=== PATIENT | female | born 1990 | race Caucasian/White ===

== ENCOUNTER 2018-06-25 15:35 | Emergency (ER) | payer BC ==
[2018-06-25] MEDS: Cephalexin 500 MG Cap ONE (16:03)
[2018-06-25] MEDS: Take Home: Cephalexin 500 MG Cap, 4 Cap Pack PO ONE (16:03)
--- NOTE | 2018-06-25 22:17 | EDM.PDOC ---
ED HPI GENERAL MEDICAL PROBLEM - General Chief Complaint: Skin Complaint Time Seen by Provider: 06/25/18 15:35 Source of Information: Reports: Patient History Limitations: Reports: No Limitations - History of Present Illness INITIAL COMMENTS - FREE TEXT/NARRATIVE: PtKrishna presents to ER with complaints to upper torso and extremities. She states that she noticed it after lying in her father's bed. No fever or chills. No weakness. No new medications. No nausea, vomiting, or diarrhea. She denies any other symptoms. Location: Reports: Chest, Back, Upper Extremity, Left, Upper Extremity, Right Associated Symptoms: Reports: Rash. Denies: Confusion, Chest Pain, Diaphoresis , Fever/Chills, Headaches, Loss of Appetite, Malaise, Shortness of Breath, Syncope Headache Pain Score (Numeric/FACES): 5 - Related Data Allergies Allergy/AdvReac Type Severity Reaction Status Date / Time No Known Allergies Allergy Verified 06/25/18 15:56 ED ROS GENERAL - Review of Systems Review Of Systems: See Below Constitutional: Reports: No Symptoms HEENT: Reports: No Symptoms Respiratory: Reports: No Symptoms Cardiovascular: Reports: No Symptoms Endocrine: Reports: No Symptoms GI/Abdominal: Reports: No Symptoms : Reports: No Symptoms Musculoskeletal: Reports: No Symptoms Skin: Reports: Pruritis, Rash Neurological: Reports: No Symptoms Psychiatric: Reports: No Symptoms Hematologic/Lymphatic: Reports: No Symptoms Immunologic: Reports: No Symptoms ED EXAM, SKIN/RASH Exam: See Below Exam Limited By: No Limitations Eye Exam: Bilateral Eye: EOMI, Normal Fundi, Normal Inspection, PERRL Ears: Normal External Exam, Normal Canal, Hearing Grossly Normal, Normal TMs Nose: Normal Inspection, Normal Mucosa, No Blood Throat/Mouth: Normal Inspection, Normal Lips, Normal Teeth, Normal Gums, Normal Oropharynx, Normal Voice, No Airway Compromise Head: Atraumatic, Normocephalic Neck: Normal Inspection, Supple, Non-Tender, Full Range of Motion Respiratory/Chest: No Respiratory Distress, Lungs Clear, Normal Breath Sounds, No Accessory Muscle Use, Chest Non-Tender Cardiovascular: Normal Peripheral Pulses, Regular Rate, Rhythm, No Edema, No Gallop, No JVD, No Murmur, No Rub Peripheral Pulses: 4+: Radial (R) GI/Abdominal: Normal Bowel Sounds, Soft, Non-Tender, No Organomegaly, No Distention, No Abnormal Bruit, No Mass (Female) Exam: Deferred Rectal (Female) Exam: Deferred Back Exam: Normal Inspection, Full Range of Motion, NT Extremities: Normal Inspection, Normal Range of Motion, Non-Tender, No Pedal Edema, Normal Capillary Refill Neurological: Alert, Oriented, CN II-XII Intact, Normal Cognition, Normal Gait, Normal Reflexes, No Motor/Sensory Deficits Psychiatric: Normal Affect, Normal Mood Skin: Other (fine, raised rash to torso and extremities. Some have some small pustular lesions to them.) Characteristics: Erythematous Course - Vital Signs Last Recorded V/S: Last Vital Signs Temp 36.6 C 06/25/18 15:35 Pulse 100 06/25/18 15:35 Resp 16 06/25/18 15:35 BP 127/87 06/25/18 15:35 Pulse Ox 98 06/25/18 15:35 - Orders/Labs/Meds Meds: Medications Discontinued Medications Generic Name Dose Route Start Last Admin Trade Name Kikeq PRN Reason Stop Dose Admin Cephalexin 1 packet 06/25/18 15:56 06/25/18 16:03 Take Home: Cephalexin 500 Mg, 4 Cap Pack PO 06/25/18 15:57 Not Given ONETIME ONE Cephalexin Confirm 06/25/18 16:01 06/25/18 16:03 Keflex Administered 06/25/18 16:02 Not Given Dose 2,000 mg .ROUTE .STK-MED ONE Departure - Departure Time of Disposition: 16:00 Disposition: Home, Self-Care 01 Condition: Good Clinical Impression: Folliculitis - Discharge Information Instructions: Folliculitis Referrals: Nathalie Luong MD [Primary Care Provider] - Forms: ED Department Discharge Additional Instructions: keflex 500mg 4 times daily for 10 days Wash sheets and clothes in hot water. Aveeno or Sarna lotion can help with the irritation. Follow-up in clinic as needed if not improving. - Assessment/Plan Plan: keflex 500mg 4 times daily for 10 days Wash sheets and clothes in hot water. Aveeno or Sarna lotion can help with the irritation. Follow-up in clinic as needed if not improving.
== END 2018-06-25 16:04 | disposition home or self-care (01) ==
LOC: VM.ED 15:35
DX: L73.9 Follicular disorder, unspecified (principal)
CPT/HCPCS: 99282